=== PATIENT | female | born 2005 | race Caucasian/White ===

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

== ENCOUNTER 2024-03-05 12:46 | Emergency (ER) | payer BC ==
[~2024-03-05] VITALS: Ht 175.3 cm; Wt 103.4 kg
[~2024-03-05 12:46] MED LIST changes: +DOXY100C PO; +GUAI600T53 PO; +PSEU120T57 PO
[2024-03-05 13:04] VITALS: BP 135/66; TEMP 98.2
[2024-03-05] MEDS ORDERED: AMOX-430 PO (13:39)
[2024-03-05] MEDS ORDERED: GUAI120013 PO (13:39)
[2024-03-05] MEDS ORDERED: FLUT16SP16 BNOSTRILS (13:39)
[2024-03-05 13:45] VITALS: O2SAT 96
== END 2024-03-05 13:45 | disposition home or self-care (01) ==
LOC: ER 12:48
DX: J01.90 Acute sinusitis, unspecified (principal); B97.89 Other viral agents as the cause of diseases classified elsewhere; E10.9 Type 1 diabetes mellitus without complications